=== PATIENT | male | born 1960 | race Caucasian/White ===

== ENCOUNTER 2018-01-31 21:08 | Emergency (ER) | payer BC ==
--- NOTE | 2018-01-31 21:13 | PDOC ---
Rapid Medical Evaluation Time Seen by Provider: 01/31/18 21:10 Medical Evaluation: Allergies Allergy/AdvReac Type Severity Reaction Status Date / Time No Known Allergies Allergy Verified 04/16/13 08:20 01/31/18 21:10 Pt presents for L upper leg pain starting one week ago. Pt denies trauma. States he works in [employer]. Denies recent travel and smoking Exam: Normal gait, NAD Orders: Nothing Pt to proceed to ED for further evaluation Discharge Disposition - Diagnosis Leg pain Qualifiers: Laterality: left Qualified Code(s): M79.605 - Pain in left leg - Referrals Referrals: Cheo Corey MD [Primary Care Provider] - - Patient Instructions - Post Discharge Activity
[2018-01-31 21:27] VITALS: BP 176/97; PULSE 71; TEMP 98; BMI 30.4
[2018-01-31] MEDS ORDERED: KETOROLAC TROMETHAMINE 30 MG/1 ML VIAL IM ONE (21:53)
[2018-01-31] MEDS ORDERED: KETOROLAC TROMETHAMINE 30 MG/1 ML VIAL ONE (21:54)
--- NOTE | 2018-01-31 22:04 | PDOC ---
History of Present Illness - General Chief Complaint: Pain Stated Complaint: PAIN Time Seen by Provider: 01/31/18 21:10 History Source: Patient Exam Limitations: No Limitations - History of Present Illness Initial Comments: 01/31/18 21:56 HISTORY OF PRESENT ILLNESS: 57-year-old male who denies medical history was presents emergency department for evaluation of left upper leg pain for the past 2 days. 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 He states that the pain gets worse when he walks. Is tried taking [id number] pain medication without any relief. He denies any trauma. No recent travel or sick contacts. PAST MEDICAL HISTORY: Denies past medical history SURGICAL HISTORY: Denies ALLERGIES: No known drug allergies REVIEW OF SYSTEMS General/Constitutional: Denies fever or chills. Denies weakness, weight change. HEENT: Denies change in vision. Denies ear pain or discharge. Denies sore throat. Cardiovascular: Denies chest pain or shortness of breath. Respiratory: Denies cough, wheezing, or hemoptysis. Gastrointestinal: Denies nausea, vomiting, diarrhea or constipation. Denies rectal bleeding. Genitourinary: Denies dysuria, frequency, or change in urination. Musculoskeletal: Left posterior upper leg pain. Denies neck or back pain. Skin and breasts: Denies rash or easy bruising. Neurologic: Denies headache, vertigo, loss of consciousness, or loss of sensation. Psychiatric: Denies depression or anxiety. Endocrine: Denies increased thirst. Denies abnormal weight change. Hematologic/Lymphatic: Denies anemia, easy bleeding, or history of blood clots. Allergic/Immunologic: Denies hives or skin allergy. Denies latex allergy. PHYSICAL EXAM General Appearance: Well-appearing, appropriately dressed. No apparent distress , no intoxication. HEENT: EOMI, PERRLA, normal ENT inspection, normal voice, TMs normal, pharynx normal. No conjunctival pallor. No photophobia, scleral icterus. Neck: Supple. Trachea midline. No tenderness, rigidity, carotid bruit, stridor , lymphadenopathy, or thyromegaly. Respiratory/Chest: Lungs CTAB. No shortness of breath, chest tenderness, respiratory distress, accessory muscle use. No crackles, rales, rhonchi, stridor , wheezing, dullness Cardiovascular: RRR. S1, S2. No JVD, murmur, bradycardia, tachycardia. Vascular Pulses: Dorsalis-Pedis (R): 2+, Dorsalis-Pedis (L): 2+ Gastrointestinal/Abdominal: Normal bowel sounds. Abdomen soft, non-distended. No tenderness or rebound tenderness. No organomegaly, pulsatile mass, guarding, hernia, hepatomegaly, splenomegaly. Lymphatic: No adenopathy, tenderness. Musculoskeletal/Extremities: Normal inspection. FROM of all extremities, normal capillary refill. Pelvis Stable. No CVA tenderness. No bony tenderness to palpation. Patient worsening pain with passive flexion and extension of left knee. No palpable muscle spasms noted to the hamstring muscles. Integumentary: Appropriate color, dry, warm. 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 Fully oriented, alert. Appropriate mood/affect. Motor strength 5/5. No appreciable EOM palsy, facial droop or sensory deficit. Past History - Past Medical History Allergies/Adverse Reactions: Allergies Allergy/AdvReac Type Severity Reaction Status Date / Time No Known Allergies Allergy Verified 01/31/18 21:12 Home Medications: Ambulatory Orders Unobtainable Home Med List 0 dose .ROUTE UTDICT 04/16/13 COPD: No HTN: Yes Hypercholesterolemia: Yes - Suicide/Smoking/Psychosocial Hx Smoking History: Never smoked Have you smoked in the past 12 months: No Hx Alcohol Use: No Substance Use Type: None *Physical Exam - Vital Signs Last Vital Signs Temp Pulse Resp BP Pulse Ox 98.0 F 71 18 176/97 H 100 01/31/18 21:10 01/31/18 21:10 01/31/18 21:10 01/31/18 21:10 01/31/18 21:10 Medical Decision Making - Medical Decision Making 01/31/18 21:56 A/P: 57-year-old male with left hamstring pain while lifting boxes at [employer] Tenderness to palpation along the mid hamstring Increased pain with flexion and full extension of left knee No palpable muscle spasms No bony tenderness noted Ambulatory with steady gait Physical exam is consistent with a strained hamstring muscle Toradol 30 mg IM now Discharge home with instructions to rest and follow-up with his primary doctor. Patient is verbalized understanding of discharge instructions. *DC/Admit/Observation/Transfer Diagnosis at time of Disposition: Left hamstring muscle strain Qualifiers: Encounter type: initial encounter Qualified Code(s): S76.312A - Strain of muscle, fascia and tendon of the posterior muscle group at thigh level, left thigh, initial encounter - Discharge Dispostion Disposition: HOME Condition at time of disposition: Stable Decision to Admit order: No - Referrals Referrals: Cheo Corey MD [Primary Care Provider] - - Patient Instructions Additional Instructions: Rest. Apply ice to back of the left leg as needed for pain. Remove ice after 20 minutes. Keep ice off your leg for at least 20 minutes before reapplying. Take Tylenol or Motrin as needed for pain. Follow director of search engine marketing's instructions for appropriate dosage. Return to emergency department for any concerns Make an appointment with your primary doctor for reevaluation if symptoms do not improve within the next week. - Post Discharge Activity Forms/Work/School Notes: Back to Work
== END 2018-01-31 22:06 | disposition home or self-care (01) ==
LOC: JERFT 21:08 → JER 21:08 → JERFT 22:06
PROC: 3E0233Z Introduction of Anti-inflammatory into Muscle, Percutaneous Approach (ICD-10-PCS; principal; 2018-01-31)
DX: S76.312A Strain of muscle, fascia and tendon of the posterior muscle group at thigh level, left thigh, initial encounter (principal); X50.0XXA Overexertion from strenuous movement or load, initial encounter; Y93.89 Activity, other specified; Y92.512 Supermarket, store or market as the place of occurrence of the external cause; Y99.0 Civilian activity done for income or pay
CPT/HCPCS: 99281-25

== ENCOUNTER 2018-02-04 18:16 | Emergency (ER) | payer BC ==
[2018-02-04 18:28] VITALS: BP 185/93; PULSE 75; TEMP 98.4; BMI 30.4
--- NOTE | 2018-02-04 19:03 | PDOC ---
History of Present Illness - General Chief Complaint: Pain Stated Complaint: LT LEG PAIN Time Seen by Provider: 02/04/18 18:57 - History of Present Illness Initial Comments: 02/04/18 19:00 57-year-old male seen in the emergency room a few days ago diagnosed with the left leg hamstring strain returns for ongoing pain. All other associated symptoms besides left leg pain. Past History - Past Medical History Allergies/Adverse Reactions: Allergies Allergy/AdvReac Type Severity Reaction Status Date / Time No Known Allergies Allergy Verified 02/04/18 18:26 Home Medications: Ambulatory Orders Unobtainable Home Med List 0 dose .ROUTE UTDICT 04/16/13 COPD: No HTN: Yes Hypercholesterolemia: Yes - Suicide/Smoking/Psychosocial Hx Smoking History: Never smoked Have you smoked in the past 12 months: No Hx Alcohol Use: No Drug/Substance Use Hx: No Substance Use Type: None Review of Systems - Review of Systems Musculoskeletal: Yes: See HPI, Muscle Pain All Other Systems: Reviewed and Negative *Physical Exam - Vital Signs Last Vital Signs Temp Pulse Resp BP Pulse Ox 98.4 F 75 18 185/93 H 100 02/04/18 18:26 10 18:26 02/04/18 18:26 02/04/18 18:26 02/04/18 18:26 - Physical Exam Comments: Left leg skin color and temperature are normal range of motion is full in the hip knee and ankle. Thigh and calf are soft and nontender. There is mild tenderness about the posterior aspect of the thigh and calf in the area of semitendinosus. The calf is floppy negative Homans sign no gross sensorimotor deficits neurovascular intact no tenderness about the medial aspect of the thigh 02/04/18 19:01 General Appearance: Yes: Appropriately Dressed Medical Decision Making - Medical Decision Making Severity unimpressive examination. He does have a hamstring strain. Anti- inflammatories did help him. He did not follow-up with orthopedic surgery as advised and he would like a note for no work 5 days which I will give today I have reinforced the importance orthopedic evaluation 02/04/18 19:01 *DC/Admit/Observation/Transfer Diagnosis at time of Disposition: Left hamstring muscle strain - Discharge Dispostion Disposition: HOME Condition at time of disposition: Stable Decision to Admit order: No - Referrals Referrals: Cheo Corey MD [Primary Care Provider] - James Daigle MD [Staff Physician] - - Patient Instructions Printed Discharge Instructions: Muscle Strain Additional Instructions: Is follow-up with orthopedic surgery in 2-3 days for further evaluation and treatment options. Continue with Tylenol and Motrin as directed for pain. Return to the emergency room should symptoms persist - Post Discharge Activity Forms/Work/School Notes: Back to Work
== END 2018-02-04 19:15 | disposition home or self-care (01) ==
LOC: JERFT 18:16
DX: S76.312A Strain of muscle, fascia and tendon of the posterior muscle group at thigh level, left thigh, initial encounter (principal); X58.XXXA Exposure to other specified factors, initial encounter; Y93.89 Activity, other specified; Y92.89 Other specified places as the place of occurrence of the external cause; Y99.8 Other external cause status
CPT/HCPCS: 99281-25

== ENCOUNTER 2018-02-15 13:03 | Emergency (ER) | payer BC ==
[2018-02-15 13:11] VITALS: BP 175/89; PULSE 71; BMI 30.4
--- NOTE | 2018-02-15 13:39 | PDOC ---
History of Present Illness - General Chief Complaint: Pain, Acute Stated Complaint: LEFT LEG IN PAIN Time Seen by Provider: 02/15/18 13:22 History Source: Patient Exam Limitations: No Limitations - History of Present Illness Initial Comments: 02/15/18 13:52 States last week was pushing something at work and stretched to floor causing injury to his left knee and lower posterior leg. Occurred: reports: last week Severity: reports: moderate Pain Location: reports: lower extremity (left knee) Method of Injury: Yes: direct blow (stretching ), fall Modifying Factors: improves with: cold therapy Loss of Consciousness: no loss of consciousness Associated Symptoms (Fall): denies symptoms Past History - Travel Traveled outside of the country in the last 30 days: No Close contact w/someone who was outside of country & ill: No - Past Medical History Allergies/Adverse Reactions: Allergies Allergy/AdvReac Type Severity Reaction Status Date / Time No Known Allergies Allergy Verified 02/15/18 13:08 Home Medications: Ambulatory Orders Lisinopril 20 mg PO DAILY 02/04/18 Losartan Potassium [Cozaar -] 50 mg PO DAILY 02/04/18 Naproxen [Naprosyn -] 500 mg PO BID #30 tablet 02/15/18 COPD: No HTN: Yes Hypercholesterolemia: Yes - Suicide/Smoking/Psychosocial Hx Smoking History: Never smoked Have you smoked in the past 12 months: No Hx Alcohol Use: No Drug/Substance Use Hx: No Substance Use Type: None Review of Systems - Review of Systems Able to Perform ROS?: Yes Is the patient limited [place] proficient: Yes Constitutional: Yes: See HPI. No: Symptoms Reported HEENTM: No: Symptoms Reported Respiratory: No: Symptoms reported Musculoskeletal: Yes: Symptoms Reported, See HPI, Joint Pain. No: Joint Swelling, Muscle Weakness Integumentary: Yes: Symptoms Reported Neurological: No: Symptoms reported All Other Systems: Reviewed and Negative *Physical Exam - Vital Signs Last Vital Signs Temp Pulse Resp BP Pulse Ox 71 18 175/89 H 98 02/15/18 13:09 02/15/18 13:09 02/15/18 13:09 02/15/18 13:09 - Physical Exam General Appearance: Yes: Nourished, Appropriately Dressed, Apparent Distress, Mild Distress HEENT: positive: WENDY, Normal ENT Inspection, TMs Normal, Pharynx Normal Neck: positive: Supple. negative: Tender Respiratory/Chest: positive: Lungs Clear Musculoskeletal: positive: Normal Inspection Extremity: positive: Normal Capillary Refill, Normal Inspection. negative: Normal Range of Motion (mild limited ROM but no swelling, crepitus or step-offs , but was mobile.reproduce tenderness in posterior fossa of left knee, no crepitus or step-offs, no masses palpated. Calf is soft without cording, swelling or reproduce tenderness. Patient is ambulatory but walks slowly. Achilles is intact. Neurovascular intact to foot) Integumentary: positive: Normal Color, Dry, Warm. 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 All primarily soft tissue. Knee immobilizer placed and patient encouraged to follow-up with orthopedist for further evaluation and possible soft tissue testing. *DC/Admit/Observation/Transfer Diagnosis at time of Disposition: Strain of knee and leg, left Qualifiers: Encounter type: initial encounter Qualified Code(s): S86.912A - Strain of unspecified muscle(s) and tendon(s) at lower leg level, left leg, initial encounter - Discharge Dispostion Disposition: HOME Condition at time of disposition: Stable Decision to Admit order: No - Referrals Referrals: Cheo Corey MD [Primary Care Provider] - Fito Plascencia MD [Staff Physician] - - Patient Instructions Printed Discharge Instructions: DI for Knee Pain Additional Instructions: Rest, ice to area on and off for 15 minutes 4-6 times a day Avoid heavy lifting or exercise until pain and swelling is resolved or until further directed Keep area highly elevated to reduce swelling Use splints/Abel wrap as directed Followup with orthopedist in one to 2 days if not improving, if significantly improved may wait one week for followup with orthopedist May use Naprosyn 1500 milligrams tablet every 12 hours as needed for pain - Post Discharge Activity Forms/Work/School Notes: Back to Work
== END 2018-02-15 13:53 | disposition home or self-care (01) ==
LOC: JERFT 13:03
DX: S86.812A Strain of other muscle(s) and tendon(s) at lower leg level, left leg, initial encounter (principal); W18.39XA Other fall on same level, initial encounter; Y93.89 Activity, other specified; Y92.512 Supermarket, store or market as the place of occurrence of the external cause; Y99.0 Civilian activity done for income or pay
CPT/HCPCS: 99281-25

== ENCOUNTER 2020-08-19 11:13 | Emergency (ER) | payer BC, OTHER ==
[2020-08-19 11:18] VITALS: BP 149/75; PULSE 68; TEMP 97.9; BMI 26.6
== END 2020-08-19 12:31 | disposition home or self-care (01) ==
LOC: JER 11:13
DX: K40.90 Unilateral inguinal hernia, without obstruction or gangrene, not specified as recurrent (principal)
CPT/HCPCS: 99281-25

== ENCOUNTER 2020-10-05 05:14 | Day surgery (SDC) | payer BC ==
[2020-09-23 15:11] VITALS: BMI 28.8
[2020-10-05] MEDS ORDERED: PROPOFOL 20 ML ONE ×2 (15:31→17:00)
[2020-10-05] MEDS ORDERED: MIDAZOLAM HCL 2 MG/2 ML SINGLE DOSE VIAL ONE (15:31)
[2020-10-05] MEDS ORDERED: LIDOCAINE HCL 1%, 10 MG/ML (20ML VIAL) ONE (15:39)
[2020-10-05] MEDS ORDERED: BUPIVACAINE HCL/PF 0.5% (5MG/ML) 10 ML VIAL ONE (15:39)
[2020-10-05] MEDS ORDERED: ceFAZolin 2 GRAM PREMIX BAG IVPB ONE (15:40)
[2020-10-05] MEDS ORDERED: PROMETHAZINE HCL 25 MG/1 ML VIAL IVPUSH PRN (16:08)
[2020-10-05] MEDS ORDERED: ONDANSETRON 4 MG/2 ML VIAL IVPUSH PRN (16:08)
[2020-10-05] MEDS ORDERED: LACTATED RINGERS SOLUTION 1,000 ML IV SCH (16:15)
[2020-10-05] MEDS ORDERED: LIDOCAINE HCL 1%, 10 MG/ML (20ML VIAL) INF ONE (16:46)
[2020-10-05] MEDS ORDERED: BUPIVACAINE HCL/PF 0.5% (5 MG/ML) 30 ML VIAL IJ ONE (16:47)
[2020-10-05] MEDS ORDERED: ONDANSETRON 4 MG/2 ML VIAL ONE (18:08)
[2020-10-05 19:20] VITALS: BP 165/89; PULSE 78; TEMP 97.8
== END 2020-10-05 19:25 | disposition home or self-care (01) ==
LOC: JASU-SURG 05:14
PROVIDERS: ATTEND Surgery
PROC: 0YU50JZ Supplement Right Inguinal Region with Synthetic Substitute, Open Approach (ICD-10-PCS; principal; 2020-10-05 15:30)
DX: K40.90 Unilateral inguinal hernia, without obstruction or gangrene, not specified as recurrent (principal)
CPT/HCPCS: 88302-TC; 88304-TC; 94760